=== PATIENT | female | born 1990 | race African-American/Black ===

== ENCOUNTER 2022-02-23 06:59 | Emergency (ER) | payer OTHER ==
[2022-02-23 07:11] VITALS: BP 99/64; PULSE 87; TEMP 98.5; BMI 28.8
[2022-02-23 08:34] LABS: HCG,QUALITATIVE URINE Positive
[2022-02-23 08:36] LABS: URINE APPEARANCE CLEAR; URINE BILIRUBIN NEGATIVE (NEGATIVE); URINE COLOR YELLOW; URINE GLUCOSE (UA) NEGATIVE (NEGATIVE); URINE KETONE 1+ (NEGATIVE); URINE LEUK ESTERASE NEGATIVE (NEGATIVE); URINE NITRITE NEGATIVE (NEGATIVE); URINE PROTEIN NEGATIVE (NEGATIVE)
[2022-02-23 09:12] LABS: BASO % 0.1 % (0-2.0); EOS % 0.6 % (0-4.5); HEMATOCRIT 28.3 % (32.4-45.2); HEMOGLOBIN 9.3 GM/dL (10.7-15.3); LYMPH % 17.2 % (8-40); MCH 25.4 pg (25.7-33.7); MCHC 32.8 g/dl (32.0-36.0); MEAN CELL VOLUME 77.4 fl (80-96); MEAN PLT VOLUME 8.5 fl (7.5-11.1); NEUT % 76.1 % (42.8-82.8); PLATELET COUNT 382 10^3/uL (134-434); RBC 3.66 M/mm3 (3.60-5.2); RDW 17.5 % (11.6-15.6); WHITE BLOOD COUNT 6.3 K/mm3 (4.0-10.0)
[2022-02-23 09:28] LABS: CALCIUM 9.2 mg/dL (8.5-10.1)
[2022-02-23 09:29] LABS: ALBUMIN 3.4 g/dl (3.4-5.0)
[2022-02-23 09:32] LABS: CREATININE 0.4 mg/dL (0.55-1.3)
[2022-02-23 09:33] LABS: BILIRUBIN,TOTAL 0.4 mg/dL (0.2-1)
[2022-02-23 09:34] LABS: TOT PROT 7.3 g/dl (6.4-8.2)
== END 2022-02-23 10:46 | disposition home or self-care (01) ==
LOC: JER 06:59
DX: O20.9 Hemorrhage in early pregnancy, unspecified (principal); Z3A.13 13 weeks gestation of pregnancy
CPT/HCPCS: 36415; 76817-TC; 80053; 81003; 84702; 84703; 85025; 86850; 86900; 86901; 87086; 99284-25